=== PATIENT | female | born 1990 | race Caucasian/White ===

== ENCOUNTER 2022-02-19 07:55 | Inpatient (IN) ==
[2022-02-19] MEDS ORDERED: OXYTOCIN 30 UNITS/500 ML BAG IV PRN ×3 (07:59→22:55)
[2022-02-19 08:40] LABS: Hematocrit (blood only) 39.7 % (34.1-44.9); Hemoglobin 13.1 g/dl (12.0-16.0); Mean Corpuscular Hemoglobin 26.6 pg (25.0-34.0); Mean Corpuscular Volume 80.7 fL (80.0-100.0); Mean Platelet Volume 10.7 fL (9.4-12.3); Platelet Count 341 K/uL (130-400); RDW Standard Deviation 45.9 fL (36.4-46.3); Red Blood Count 4.92 M/uL (3.93-5.22); White Blood Count 10.31 K/ul (4.8-10.8)
[2022-02-19 09:07] LABS: Alanine Aminotransferase 14 U/L (7-52); Albumin Level 3.2 gm/dl (3.4-5.0); Alkaline Phosphatase 132 U/L (34-104); Anion Gap 9 (3-11); Aspartate Aminotransferase 18 U/L (13-39); BUN Creatinine Ratio 18.5 (10-20); Bilirubin,Total 0.3 mg/dl (0.2-1.0); Blood Urea Nitrogen 10 mg/dl (6-23); Carbon Dioxide 21 mmol/L (21-32); Chloride 104 mmol/L (98-107); Est GFR (African American) 145.7 ml/min; Est GFR (Non-African American) 125.7 ml/min; Globulin 3.1 gm/dl (2.5-4.0); Glucose 93 mg/dl (70-99(Fasting)); Potassium 3.9 mmol/L (3.5-5.1); Sodium 134 mmol/L (136-145); Total Protein 6.3 gm/dl (6.0-8.3)
[2022-02-19] MEDS: LACTATED RINGER'S 1,000 ML IV PRN ×3 (09:20→19:33)
[2022-02-19] MEDS: CALCIUM CARBONATE 500 MG CHEWABLE TAB PO PRN ×2 (09:34→14:03)
--- NOTE | 2022-02-19 11:56 | Electrocardiogram Report ---
Test Reason : Blood Pressure : / mmHG Vent. Rate : 075 BPM Atrial Rate : 075 BPM P-R Int : 150 ms QRS Dur : 084 ms QT Int : 380 ms P-R-T Axes : 029 006 017 degrees QTc Int : 424 ms Normal sinus rhythm with sinus arrhythmia Moderate voltage criteria for LVH, may be normal variant Borderline ECG No previous ECGs available Confirmed by Matt Flor ([id number]) on 02/19/2022 11:55:47 AM Referred By: Castillo Cruz Confirmed By:Darnell Flor
[2022-02-19] MEDS ORDERED: ePHEDrine sulfate 50 MG/ML AMP ONE (12:22)
[2022-02-19] MEDS ORDERED: fentaNYL citrate 100 MCG/2 ML VIAL ONE ×2 (12:23→20:42)
[2022-02-19] MEDS ORDERED: BUPIVACAINE 0.25% 30 ML VIAL ONE ×2 (12:23→20:42)
[2022-02-19] MEDS ORDERED: fentaNYL 2MCG/ML ROPIVACAINE 1.25MG/ML 100 ML BAG EPI ONE (12:23)
[2022-02-19] MEDS ORDERED: SODIUM CHLORIDE 0.9% INJ 10 ML VIAL ONE (12:23)
[2022-02-19] MEDS ORDERED: LIDOCAINE 2%/EPINEPHRINE 1:200,000 20 ML SDV ONE (12:23)
--- NOTE | 2022-02-19 12:28 | Anesthesiology Consultation ---
Date of Service February 19, 2022 Assessment & Plan (1) Encounter for pre-operative examination: Chart Review Chart Review: Acceptable Risk for Labor Epidural History Height/Weight Height: 5 ft 6 in Weight: 143.088 kg Allergies Allergy/AdvReac Type Severity Reaction Status Date / Time bee venom protein (honey bee) Allergy Swelling Verified 02/18/22 10:28 of the Eye Medications Home Medications Medication Instructions Recorded Confirmed Last Taken aspirin 81 mg tablet,delayed 81 mg PO DAILY 09/18/21 02/19/22 02/17/22 07:00 release prenat.vits,nena,cyz-miub-tyqwo 1 tab PO DAILY #90 tabs 10/19/21 02/19/22 02/19/22 06:00 labetalol 100 mg tablet 100 mg PO BID #60 tabs 12/25/21 02/19/22 02/19/22 0600 famotidine 40 mg tablet 40 mg PO HS #30 tabs 01/18/22 02/19/22 02/18/22 20:00 breast pump #1 ea 02/12/22 02/18/22 Unknown breast pump #1 ea 02/18/22 Unknown Active Medications Generic Name Dose Route Start Last Admin Trade Name Freq PRN Reason Stop Dose Admin Calcium Carbonate 500 mg 02/19/22 09:19 02/19/22 09:34 Calcium Carbonate 500 Mg Chewable Tab PO 03/21/22 09:18 500 mg Q4 PRN Administration Indigestion Oxytocin 30 units in 500 mls @ 10 mls/hr 02/19/22 07:59 02/19/22 12:00 Pitocin IV 02/21/22 07:58 0.6 units/hr .Q24H PRN 10 mls/hr Labor Induction/Augmentation Titration Protocol 0.6 UNITS/HR Lactated Ringer's 1,000 mls @ 125 mls/hr 02/19/22 07:59 02/19/22 10:39 Lr IV 02/21/22 07:58 125 mls/hr .Q8H PRN Infusion L&D Protocol Protocol Past Medical History Medical History Anxiety Benign essential hypertension Chicken pox Obesity Pre-eclampsia delivery without spontaneous labor Exercise / Class Metabolic Activity II 4-5 Yardwork/Stairs/Walk up hill Past Family History Family History Grandmother (Maternal) Breast cancer Mother Cancer Unsure of type Father Lung cancer, Onset Age: 71 smoker Myocardial infarction, Onset Age: 40 heavy smoker Heart disease High cholesterol Coronary heart disease Uncle Myocardial infarction, Onset Age: 50 Coronary heart disease Grandmother (Maternal) Breast cancer, Onset Age: 79 of it at age 80 Denies family history of Rheumatoid arthritis Ovarian cancer Prostate cancer Diabetes Dementia Depression Kidney disease Colorectal cancer Pulmonary embolism Hypertension Ulcerative colitis Stroke Past Surgical History Surgical History [place] teeth extracted Social History Smoking Status: Never smoker Hx Alcohol Use: No Alcohol type: wine and hard liquor Hx Substance Use: No Physical Exam Vital Signs Last Vital Signs Temp 36.8 C 02/19/22 09:39 Pulse 71 02/19/22 12:03 Resp 22 02/19/22 09:39 BP 179/87 H 02/19/22 12:03 Pulse Ox 97 02/19/22 10:54 Testing Laboratory Results 02/19/22 08:16 02/19/22 08:16 Blood Type A Positive 02/19/22 08:16 Antibody Screen NEGATIVE 02/19/22 08:16
[2022-02-19] MEDS ORDERED: fentaNYL 2MCG/ML ROPIVACAINE 1.25MG/ML 100 ML BAG EPI PRN (12:58)
[2022-02-19] MEDS ORDERED: NALOXONE HCL 1 MG in SODIUM CHLORIDE 0.9% 1000ML 1,000 ML IV PRN (12:58)
[2022-02-19] MEDS ORDERED: ePHEDrine sulfate 50 MG/ML AMP IV PRN (12:58)
[2022-02-19] MEDS ORDERED: ONDANSETRON INJ 2 MG/ML 2 ML VIAL IV PRN (12:58)
[2022-02-19] MEDS ORDERED: NALOXONE HCL 0.4 MG/1 ML VIAL/CARP IV PRN (12:58)
[2022-02-19 13:56] LABS: Basophils # (auto) 0.04 K/uL (0-0.2); Basophils % (auto) 0.4 %; Eosinophils # (auto) 0.11 K/uL (0-0.50); Eosinophils % (auto) 1.1 %; Hematocrit (blood only) 39.4 % (34.1-44.9); Hemoglobin 13.1 g/dl (12.0-16.0); Immature Granulocytes # (auto) 0.05 K/uL (0.00-0.02); Immature Granulocytes % (auto) 0.5 %; Lymphocytes # (auto) 2.06 K/uL (1.2-3.4); Lymphocytes % (auto) 20.8 %; Mean Corpuscular Hemoglobin 27.2 pg (25.0-34.0); Mean Corpuscular Hgb Conc 33.2 g/dL (32.0-36.0); Mean Corpuscular Volume 81.7 fL (80.0-100.0); Mean Platelet Volume 10.9 fL (9.4-12.3); Monocytes # (auto) 0.64 K/uL (0.24-0.82); Monocytes % (auto) 6.5 %; Neutrophils # (auto) 7.02 K/uL (1.4-6.5); Neutrophils % (auto) 70.7 %; Platelet Count 323 K/uL (130-400); RDW Coefficient of Variation 16.1 % (11.5-14.5); RDW Standard Deviation 47.6 fL (36.4-46.3); Red Blood Count 4.82 M/uL (3.93-5.22); White Blood Count 9.92 K/ul (4.8-10.8)
[2022-02-19 14:38] LABS: Creatinine Clr Calc Pharmacy 202.4 ml/min; Est GFR (African American) 141.6 ml/min; Est GFR (Non-African American) 122.1 ml/min
--- NOTE | 2022-02-19 14:39 | Hospitalist Consultation ---
Date of Consultation February 19, 2022 Assessment & Plan (1) Chest pain: - Ddx includes GERD vs anxiety vs less likely ACS or PE. Her hypertension has been well controlled this , other RF for cardiac disease include her obesity. She has been slightly tachycardic here which can be attributed to anxiety she endorses. SpO2 > 95% on RA, no personal or family history of VTE. Her history of reflux which she notes has been worse this as well as associated feelings of reflux/regurgitation alleviated sitting more upright and with TUMS makes this more likely to be her reflux, perhaps with anxiety playing a role as well as she tells me she did nto sleep well last night and is nervous about this delivery. - EKG ordered by primary team which shows NSR with sinus arrhythmia and moderate criteria for LVH. - Will order troponin STAT. With intermittent chest pain for 5 hours now, would expect this to be elevated if this is cardiac in nature. If elevated, will pursue cardiac workup. If negative, will continue to monitor but augustine be more reassured that this is her GERD +/- anxiety. - TUMS ordered Q4h PRN, will order Pepcid dose now. Supervising Physician Co-Signing Physician Notes Attending Attestation & Consult Note - Pt seen/examined, chart reviewed, care plan d/w ADRIANE Yusuf. I agree w/ the garcia components of her consultation. 31yo female - - currently in labor and expecting a healthy son. h/o morbid obesity and HTN - latter treated with meds x 3-4 years. also with h/o GERD with frequent symptoms throughout her . reports she also snores during sleep. We were consulted due to mid-sternal chest discomfort, occurring off/on, since admission earlier today. Symptoms feel similar to pain experienced with GERD throughout her . No pleuritic chest pain. No dyspnea. I saw the patient several hours after she received pepcid and her symptoms did improve with such. She admits to feeling anxious about the delivery and is overall uncomfortable due to ongoing contractions. PMH/PSH/allergies/meds/sochx/famhx - reviewed --no personal or family h/o VTE vitals - BPs elevated, HRs 90s/100s, afebrile, o2 sats wnl gen - morbidly obese, awake, alert, NAD neck - no JVD mouth - MMM heart - RRR, s1 s2, no murmur chest - no reproducible chest wall tenderness to palpation lungs - CTA b/l abd - gravid abdomen ext - 1-2+ edema b/l, pulses 2+ b/l labs reviewed including troponin at 1530 this afternoon EKG - my reading - NSR, LVH by voltage criteria, no ST changes A/P: 1. active labor, 2. chest pain - GERD? musculoskeletal? combination of factors? CAD risk factors - family history, morbid obesity plan to repeat 1 more troponin later tonight and, if normal, ischemic pain highly unlikely 3. LVH on EKG - likely due to long-standing HTN; deserves echo at some point in future to assess LV 4. snoring - needs sleep study in the future as this will make HTN more difficult to treat 5. GERD - change H2 antonio to PPI in am as it appears her GERD is moderate- severe; she intends to breastfeed but PPI is acceptable based on the literature 6. HTN - will follow and adjust labetalol if needed Candelario Artis MD History of Present Illness Reason for Consultation: chest pain Requesting Physician: Castillo Cruz MD, FACOG Attending Physician: Castillo Cruz MD, FACOG History of Present Illness Jes Hwang is a 31-year-old female with a past medical history significant of hypertension, GERD, anxiety, and preeclampsia was admitted today, 02/19 for induction today. Patient arrived around 8 AM today, and reports about 2 hours after arrival, she began to experience left-sided chest discomfort. Hospitalist service was consulted for further evaluation. Patient states she first noted her chest discomfort occurred at rest and does not feel necessarily sharp, stabbing, or like a burning sensation. She feels as if sometimes her heart is beating funny with the discomfort. It is a 5/10 at its worse and lasts for 2 minutes before it goes away on its own. Does not radiate. She has noticed that deep breaths is an alleviating factor, as well as sitting upright. She was given Tums earlier which helped a bit. Nothing makes the pain particularly worse. She does not feel short of breath, dizzy, or lightheaded with the chest pain but does have the sensation as if she could regurgitate something. She does note her reflux has been worse this , she has been taking both vbln-pew-ivusonx and prescribed Pepcid for this, last taken last evening. Does have stress going on in her life and is feeling somewhat anxious about giving . No personal history of cardiac disease or pulmonary disease, she denies ever having any blood clot. Allergies Allergy/AdvReac Type Severity Reaction Status Date / Time bee venom protein (honey bee) Allergy Swelling Verified 02/18/22 10:28 of the Eye Home Medications Medication Instructions Recorded Confirmed Type aspirin 81 mg tablet,delayed 81 mg PO DAILY 09/18/21 02/19/22 History release prenat.vits,nena,vsw-qqnm-gmutk 1 tab PO DAILY #90 tabs 10/19/21 02/19/22 Rx labetalol 100 mg tablet 100 mg PO BID #60 tabs 12/25/21 02/19/22 Rx famotidine 40 mg tablet 40 mg PO HS #30 tabs 01/18/22 02/19/22 Rx breast pump #1 ea 02/12/22 02/18/22 Rx breast pump #1 ea 02/18/22 Rx Patient History Medical History Anxiety Benign essential hypertension Chicken pox Obesity Pre-eclampsia delivery without spontaneous labor Surgical History [place] teeth extracted Family History Grandmother (Maternal) Breast cancer Mother Cancer Unsure of type Father Lung cancer, Onset Age: 71 smoker Myocardial infarction, Onset Age: 40 heavy smoker Heart disease High cholesterol Coronary heart disease Uncle Myocardial infarction, Onset Age: 50 Coronary heart disease Grandmother (Maternal) Breast cancer, Onset Age: 79 of it at age 80 Denies family history of Rheumatoid arthritis Ovarian cancer Prostate cancer Diabetes Dementia Depression Kidney disease Colorectal cancer Pulmonary embolism Hypertension Ulcerative colitis Stroke Social History Smoking Status: Never smoker Second Hand Exposure: No; Hx Alcohol Use: No Hx Substance Use: No Preferred Language: Tanzanian Communication Ability: Effective Label Pinker Required: No Beliefs That Will Affect Care: None marital status: marital status details: Keny Jaiden ([id number]) [phone] Current Living Situation: Family Current Living Situation Comment: FOB, son and custody of mary (9yo). 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 Feels Safe at Home: Yes Safety Concerns: Feels Safe At This Time Childhood Exposure to Second-Hand Smoke: Yes caffeine: No Dental Care, Regularly: No Seatbelt Use: always Sunscreen Use: Yes Assistive Devices: None Review of Systems Review of Systems: Constitutional: No fever/chills, weakness, fatigue, myalgias, anorexia, night sweats Eyes: No diplopia, no worsening or blurred vision ENT: normal hearing, no trouble swallowing Respiratory: No cough, sputum, dyspnea at rest or on exertion Cardiovascular: left sided chest discomfort lasting 2 mins at a time since this AM, with sensation that her heart is beating "funny" Abdomen: reflux associated with chest discomfort at times; no pain, nausea, vomiting, diarrhea or constipation : Denies dysuria, hematuria, increased urgency/frequency, urinary retention Musculoskeletal: No joint pain, calf pain, swelling Neurologic: No weakness, numbness/tingling, or balance problems Psychiatric: No anxiety or depression Skin: No rash or itch Physical Exam Physical Exam: General: awake, alert, no apparent distress Head: Normocephalic, atraumatic ENT: PERRL, EOMI, no pharyngeal exudate, mucous membranes moist Chest: Clear to auscultation, on room air, no adventitious breath sounds Cardiac: Regular rate and rhythm, no murmur, no JVD, normal peripheral pulses, good capillary refill Abdominal: NABS x 4 quadrants, soft, nontender to palpation, no rebound, guarding or tenderness Extremities: Normal inspection, no peripheral edema or erythema, calfs nontender to palpation Psych: Normal mood and affect Neuro: AAO x 3, strength intact bilaterally and rated 5/5, no motor deficits, speech is clear, no peripheral sensory deficits Skin: no rash or erythema Results & Data Results & Data ([facility]) Vital Signs (Past 12 Hours) Vital Signs Temp Pulse Resp BP Pulse Ox 02/19/22 14:32 94 H 95 02/19/22 14:27 72 98 02/19/22 14:28 80 149/86 H 02/19/22 14:22 80 98 02/19/22 14:18 88 137/86 02/19/22 14:17 77 95 02/19/22 14:12 74 98 02/19/22 14:10 89 164/83 H 02/19/22 14:07 86 99 02/19/22 14:02 84 98 02/19/22 13:59 36.8 C 80 20 136/79 02/19/22 13:57 70 97 02/19/22 13:52 67 97 02/19/22 13:50 80 93 02/19/22 13:49 78 145/67 H 02/19/22 13:47 86 97 02/19/22 13:42 82 97 02/19/22 13:38 96 H 164/83 H 02/19/22 13:37 92 H 99 02/19/22 13:32 83 99 02/19/22 13:27 99 02/19/22 13:27 84 02/19/22 13:28 80 147/71 H 02/19/22 13:27 91 H 91 02/19/22 13:22 76 97 02/19/22 13:18 78 167/95 H 02/19/22 13:17 82 98 02/19/22 13:12 84 99 02/19/22 13:09 90 146/102 H 02/19/22 13:07 78 98 02/19/22 13:06 83 180/101 H 02/19/22 13:02 93 H 96 02/19/22 13:01 91 H 171/84 H 02/19/22 12:59 84 168/90 H 02/19/22 12:57 70 164/83 H 97 02/19/22 12:56 82 180/88 H 02/19/22 12:52 80 98 02/19/22 12:47 77 98 02/19/22 12:45 114 H 94 02/19/22 12:42 93 H 97 02/19/22 12:38 91 H 93 02/19/22 12:37 90 97 02/19/22 12:32 84 97 02/19/22 12:03 71 179/87 H 02/19/22 11:57 77 177/90 H 02/19/22 11:40 78 181/101 H 02/19/22 10:54 74 97 02/19/22 10:49 74 96 02/19/22 10:44 83 97 02/19/22 10:39 83 97 02/19/22 10:35 75 142/71 H 02/19/22 10:34 78 97 02/19/22 10:29 80 97 02/19/22 10:27 80 142/69 H 02/19/22 10:26 81 94 02/19/22 10:24 72 96 02/19/22 10:19 78 97 02/19/22 10:17 89 131/96 02/19/22 10:14 85 97 02/19/22 10:09 80 97 02/19/22 10:05 81 138/79 02/19/22 10:04 91 H 95 02/19/22 09:59 84 96 02/19/22 09:55 84 132/78 02/19/22 09:54 84 97 02/19/22 09:49 95 H 96 02/19/22 09:46 81 138/80 02/19/22 09:44 86 97 02/19/22 09:39 85 97 02/19/22 09:36 82 149/81 H 02/19/22 09:34 90 97 02/19/22 09:29 91 H 98 02/19/22 09:25 94 H 153/79 H 02/19/22 09:24 89 98 02/19/22 09:19 102 H 97 02/19/22 09:14 83 99 02/19/22 09:15 77 148/87 H 02/19/22 09:09 90 97 02/19/22 09:05 85 156/94 H 02/19/22 09:04 89 97 02/19/22 08:59 92 H 99 02/19/22 08:54 92 H 98 02/19/22 08:50 82 138/90 02/19/22 09:39 36.8 C 82 22 149/81 H 96 Laboratory Results Abnormal lab results 02/19/22 02/19/22 02/19/22 Range/Units 08:16 08:16 13:43 RDW Std Deviation 47.6 H (36.4-46.3) fL RDW Coeff of Jailene 16.0 H 16.1 H (11.5-14.5) % Neut # (Auto) 7.02 H (1.4-6.5) K/uL Immature Gran # (Auto) 0.05 H (0.00-0.02) K/uL Sodium 134 L (136-145) mmol/L Creatinine 0.54 L (0.6-1.2) mg/dl Alkaline Phosphatase 132 H (34-104) U/L Albumin 3.2 L (3.4-5.0) gm/dl ECG Additional Comments: Normal sinus rhythm with sinus arrhythmia Moderate voltage criteria for LVH, may be normal variant Borderline ECG No previous ECGs available Confirmed by Matt Flor ([id number]) on 02/19/2022 11:55:47 AM PG Care Time/CCT Total # of Minutes Spent Total Time Spent with Patient: Total time spent is greater than 50% in coordination of care (as documented) at patient's floor/unit and/or counseling patient: Coding Level of Care Code 74032 Inpt Consult Level 3 Diagnoses Chest pain R07.9
[2022-02-19] MEDS ORDERED: FAMOTIDINE 40 MG TABLET PO ONE (16:00)
--- NOTE | 2022-02-19 19:05 | Labor Progress Brief Note ---
Date of Service February 19, 2022 Still 4 cm membranes were ruptured IUPC is placed after discussion with patient to better gain idea of the strength of her contractions Pitocin is at 18 Assessment & Plan Admission and Anticipated Discharge Date Admission Date: February 19, 2022 Results & Data ([facility]) Vital Signs (Past 12 Hours) Vital Signs Temp Pulse Resp BP Pulse Ox 02/19/22 19:02 92 H 96 02/19/22 18:57 97 H 95 02/19/22 18:52 111 H 94 02/19/22 18:47 98 H 96 02/19/22 18:45 105 H 171/74 H 02/19/22 18:42 101 H 96 02/19/22 18:37 88 95 02/19/22 18:32 99 H 97 02/19/22 18:30 100 H 130/56 L 02/19/22 18:27 115 H 96 02/19/22 18:28 109 H 89 L 02/19/22 18:22 105 H 96 02/19/22 18:17 96 H 96 02/19/22 18:14 104 H 143/69 H 02/19/22 18:12 98 H 96 02/19/22 18:07 103 H 97 02/19/22 18:02 101 H 97 02/19/22 18:00 96 H 143/73 H 02/19/22 17:57 98 H 95 02/19/22 17:52 96 H 95 02/19/22 17:47 91 H 96 02/19/22 17:44 95 H 141/80 H 02/19/22 17:42 106 H 97 02/19/22 17:37 95 H 95 02/19/22 17:32 92 H 97 02/19/22 17:30 91 H 142/70 H 02/19/22 17:27 96 H 95 02/19/22 17:22 92 H 97 02/19/22 17:17 93 H 96 02/19/22 17:15 93 H 162/76 H 02/19/22 17:12 83 96 02/19/22 17:07 105 H 94 02/19/22 17:02 95 02/19/22 17:02 103 H 02/19/22 17:02 100 H 94 02/19/22 16:59 98.6 F 90 18 136/81 02/19/22 16:57 103 H 96 02/19/22 16:52 100 H 96 02/19/22 16:47 79 96 02/19/22 16:45 88 94 02/19/22 16:42 92 H 98 02/19/22 16:37 81 98 02/19/22 16:32 98 H 97 02/19/22 16:30 91 H 140/80 02/19/22 16:27 89 98 02/19/22 16:22 95 H 96 02/19/22 16:17 100 H 97 02/19/22 16:14 89 145/85 H 02/19/22 16:12 89 97 02/19/22 16:07 104 H 99 02/19/22 16:02 96 H 98 02/19/22 15:58 80 131/71 02/19/22 15:57 81 97 02/19/22 15:52 88 97 02/19/22 15:47 88 98 02/19/22 15:44 90 134/70 02/19/22 15:42 91 H 98 02/19/22 15:37 89 98 02/19/22 15:32 84 98 02/19/22 15:28 86 141/76 H 02/19/22 15:27 88 98 02/19/22 15:22 82 99 02/19/22 15:17 82 96 02/19/22 15:18 88 136/73 02/19/22 15:12 77 97 02/19/22 15:09 79 134/71 02/19/22 15:07 85 96 02/19/22 15:02 70 95 02/19/22 14:58 83 135/70 02/19/22 14:57 83 97 02/19/22 14:52 77 98 02/19/22 14:49 79 132/75 02/19/22 14:47 89 98 02/19/22 14:46 91 H 93 02/19/22 14:42 75 98 02/19/22 14:37 81 97 02/19/22 14:38 79 139/76 02/19/22 14:32 94 H 95 02/19/22 14:27 72 98 02/19/22 14:28 80 149/86 H 02/19/22 14:22 80 98 02/19/22 14:18 88 137/86 02/19/22 14:17 77 95 02/19/22 14:12 74 98 02/19/22 14:10 89 164/83 H 02/19/22 14:07 86 99 02/19/22 14:02 84 98 02/19/22 13:59 98.2 F 80 20 136/79 02/19/22 13:57 70 97 02/19/22 13:52 67 97 02/19/22 13:50 80 93 02/19/22 13:49 78 145/67 H 02/19/22 13:47 86 97 02/19/22 13:42 82 97 02/19/22 13:38 96 H 164/83 H 02/19/22 13:37 92 H 99 02/19/22 13:32 83 99 02/19/22 13:27 99 02/19/22 13:27 84 02/19/22 13:28 80 147/71 H 02/19/22 13:27 91 H 91 02/19/22 13:22 76 97 02/19/22 13:18 78 167/95 H 02/19/22 13:17 82 98 02/19/22 13:12 84 99 02/19/22 13:09 90 146/102 H 02/19/22 13:07 78 98 02/19/22 13:06 83 180/101 H 02/19/22 13:02 93 H 96 02/19/22 13:01 91 H 171/84 H 02/19/22 12:59 84 168/90 H 02/19/22 12:57 70 164/83 H 97 02/19/22 12:56 82 180/88 H 02/19/22 12:52 80 98 02/19/22 12:47 77 98 02/19/22 12:45 114 H 94 02/19/22 12:42 93 H 97 02/19/22 12:38 91 H 93 02/19/22 12:37 90 97 02/19/22 12:32 84 97 02/19/22 12:03 71 179/87 H 02/19/22 11:57 77 177/90 H 02/19/22 11:40 78 181/101 H 02/19/22 10:54 74 97 02/19/22 10:49 74 96 02/19/22 10:44 83 97 02/19/22 10:39 83 97 02/19/22 10:35 75 142/71 H 02/19/22 10:34 78 97 02/19/22 10:29 80 97 02/19/22 10:27 80 142/69 H 02/19/22 10:26 81 94 02/19/22 10:24 72 96 02/19/22 10:19 78 97 02/19/22 10:17 89 131/96 02/19/22 10:14 85 97 02/19/22 10:09 80 97 02/19/22 10:05 81 138/79 02/19/22 10:04 91 H 95 02/19/22 09:59 84 96 02/19/22 09:55 84 132/78 02/19/22 09:54 84 97 02/19/22 09:49 95 H 96 02/19/22 09:46 81 138/80 02/19/22 09:44 86 97 02/19/22 09:39 85 97 02/19/22 09:36 82 149/81 H 02/19/22 09:34 90 97 02/19/22 09:29 91 H 98 02/19/22 09:25 94 H 153/79 H 02/19/22 09:24 89 98 02/19/22 09:19 102 H 97 02/19/22 09:14 83 99 02/19/22 09:15 77 148/87 H 02/19/22 09:09 90 97 02/19/22 09:05 85 156/94 H 02/19/22 09:04 89 97 02/19/22 08:59 92 H 99 02/19/22 08:54 92 H 98 02/19/22 08:50 82 138/90 02/19/22 09:39 98.2 F 82 22 149/81 H 96 Coding Level of Care Code None
[2022-02-19] MEDS ORDERED: NURSING L&D Epidural Breakthrough Pain Update ONE (20:24)
--- NOTE | 2022-02-19 22:29 | Delivery Summary ---
Vaginal Delivery Summary Date of Service February 19, 2022 Vaginal Delivery Summary Patient induced for chronic hypertension initially with cervical Mcneill then Pitocin she did suffers from some chest pain which was assessed with an EKG and by the hospitalist team most this was felt to be more due to anxiety she also had some elevated blood pressures related to anxiety however this would settle down soon afterwards. Labs were drawn to check for preeclampsia and these were negative Patient progressed to anterior lip was feeling discomfort and started to push this she then delivered a baby in occiput anterior position this was accomplished by delivering the head suctioning mouth and nares then gentle traction the baby no excessive force live vigorous male cord clamped and cut cord blood obtained placenta removed with traction there was no tearing estimated blood loss 150 mL IV the Pitocin was started uterine tone improved sponge and instrument counts correct
[2022-02-19] MEDS ORDERED: oxyCODONE/ACETAMINOPHEN 5mg/325mg TAB PO PRN (22:55)
[2022-02-19] MEDS ORDERED: HYDROCORTISONE ACETATE 25 MG SUPP PR PRN (22:55)
[2022-02-19] MEDS ORDERED: BENZOCAINE 20% AER SPR 82.5 GM CAN EXT PRN (22:55)
[2022-02-19] MEDS ORDERED: DIPHTHERIA/TETANUS/PERTUSSIS 0.5 ML SYR/VIAL IM ONE (22:55)
[2022-02-19] MEDS ORDERED: bisacodyL 10 MG SUPP PR PRN (22:55)
[2022-02-19] MEDS ORDERED: ACETAMINOPHEN 325 MG TAB PO PRN (22:55)
[2022-02-19] MEDS: IBUPROFEN 600 MG TAB PO PRN (23:33)
[2022-02-20] MEDS: LABETALOL HCL 100 MG TAB PO SCH ×3 (00:05→20:18)
[2022-02-20 06:02] LABS: Hematocrit (blood only) 36.1 % (34.1-44.9); Hemoglobin 11.8 g/dl (12.0-16.0); Mean Corpuscular Hemoglobin 26.9 pg (25.0-34.0); Mean Corpuscular Hgb Conc 32.7 g/dL (32.0-36.0); Mean Corpuscular Volume 82.2 fL (80.0-100.0); Mean Platelet Volume 10.5 fL (9.4-12.3); Platelet Count 286 K/uL (130-400); RDW Coefficient of Variation 15.6 % (11.5-14.5); RDW Standard Deviation 46.3 fL (36.4-46.3); Red Blood Count 4.39 M/uL (3.93-5.22); White Blood Count 15.13 K/ul (4.8-10.8)
--- NOTE | 2022-02-20 06:24 | Anesthesia Procedure Note ---
Date of Service February 20, 2022 Anesthesia Post Epidural Note Vital Signs Vital Signs: Temp Pulse Resp BP Pulse Ox O2 Del Method 36.5 C 100 H 24 126/84 97 02/20/22 03:45 02/20/22 03:45 02/20/22 03:45 02/20/22 03:45 02/20/22 03:45 02/20/22 03:45 Pain Intensity Bilateral Abdomen: Pain Intensity: 6 Bilateral Perineal: Pain Intensity: 1 Notes Mental Status: alert / awake / arousable and participated in evaluation Nausea / Vomiting: adequately controlled Pain: adequately controlled Airway Patency, RR, SpO2: stable & adequate BP & HR: stable & adequate Hydration State: stable & adequate Neuraxial Anesthesia: was administered and sensory block is resolving Anesthetic Complications: no major complications apparent Epidural: Removed without complications and With tip intact
--- NOTE | 2022-02-20 06:45 | Obstetrical Progress Note ---
Date of Service <Silvia Biju Robertson DO - Last Filed: 02/20/22 06:45> February 20, 2022 Assessment & Plan <Silvia Biju Robertson DO - Last Filed: 02/20/22 06:45> (1) state: Patient is PPD 1 s/p and doing well. - Eating well, voiding well, ambulating well - Vitals reviewed and within normal limits - Pain well controlled with ibuprofen 600 mg Q4H PRN - OOB, ambulation, diet progression as tolerated - Blood type: A+, GBS neg, rubella immune - Plan to discharge tomorrow - After discharge, 6 week follow up with Dr. Cruz <Castillo Cruz MD, FACOG - Last Filed: 02/20/22 07:38> (1) state: Subjective <Silvia KauffmanJoanna Robertson DO - Last Filed: 02/20/22 06:45> Jes Hwang is a 31 yo female who is now PPD #1 following spontaneous vaginal delivery at 38 weeks. Reports feeling well this morning. She denies abdominal cramping. She has 7-8/10 pain that comes and goes that she believes is related to hemorrhoids. Otherwise, she has no pain. Chest pain from yesterday has not recurred. Voiding without issue. Tolerating regular meals overnight and able to ambulate some. She has passed gas but no bowel movements. Persistent lochia with some improvement this morning. Currently breast feeding. Review of Systems Denies fever, chills, sweats. Denies SOB, difficulty breathing, chest pain, palpitations, and chest pressure. Denies breast pain. Denies dysuria. Denies headache or changes in vision. Physical Exam <Silvia Robertson DO - Last Filed: 02/20/22 06:45> General: Alert and oriented. No acute distress. CV: Regular rate and rhythm. No murmurs. Respiratory: CTA bilaterally. No rhonchi, wheezes, or crackles. No increased work of breathing. Abdomen: Positive bowel sounds. Soft, nontender, non distended. Uterus: Fundus firm and palpable 3 cm below the umbilicus. Lower extremities: Bilateral lower extremity edema mainly in feet. No deep calf pain. Michael's negative bilaterally. Results & Data ([facility]) <Silvia Ivy Marcelo, DO - Last Filed: 02/20/22 06:45> Vital Signs (Past 12 Hours) Vital Signs Temp Pulse Pulse Resp BP BP Pulse Ox 02/20/22 03:45 36.5 C 100 H 24 126/84 97 02/20/22 01:00 36.7 C 115 H 22 138/84 95 02/20/22 00:35 75 137/77 02/20/22 00:05 18 02/19/22 22:50 18 02/19/22 23:35 18 02/19/22 23:20 18 02/19/22 23:20 18 02/19/22 23:05 18 02/19/22 22:35 18 02/20/22 00:34 75 137/77 02/20/22 00:20 100 H 162/90 H 02/20/22 00:04 117 H 145/82 H 02/19/22 23:49 106 H 146/82 H 02/19/22 23:34 114 H 149/88 H 02/19/22 23:19 91 H 147/81 H 02/19/22 23:04 86 147/82 H 02/19/22 22:54 96 H 142/86 H 02/19/22 22:00 18 02/19/22 22:00 18 02/19/22 21:30 18 02/19/22 21:30 18 02/19/22 22:37 101 H 96 02/19/22 22:35 100 H 191/86 H 02/19/22 22:32 104 H 98 02/19/22 22:27 107 H 97 02/19/22 22:22 112 H 95 02/19/22 22:17 99 H 95 02/19/22 22:13 110 H 89 L 02/19/22 22:12 94 H 98 02/19/22 22:07 87 98 02/19/22 22:02 96 H 99 02/19/22 21:57 101 H 97 02/19/22 21:52 106 H 96 02/19/22 21:50 108 H 167/109 H 02/19/22 21:47 99 H 96 02/19/22 21:42 83 96 02/19/22 21:37 80 97 02/19/22 21:36 85 175/94 H 02/19/22 21:32 71 95 02/19/22 21:27 87 96 02/19/22 21:00 18 02/19/22 21:00 36.8 C 18 02/19/22 21:22 87 96 02/19/22 21:21 95 H 143/92 H 02/19/22 21:17 74 98 02/19/22 21:12 93 H 97 02/19/22 21:07 101 H 96 02/19/22 21:04 103 H 160/77 H 02/19/22 21:02 98 H 97 02/19/22 21:01 99 H 174/72 H 02/19/22 20:58 93 H 171/74 H 02/19/22 20:57 98 H 97 02/19/22 20:55 90 186/77 H 02/19/22 20:52 93 H 96 02/19/22 20:50 90 164/96 H 02/19/22 20:47 81 97 02/19/22 20:42 88 94 02/19/22 20:37 103 H 98 02/19/22 20:32 86 97 02/19/22 20:30 103 H 20 173/96 H 02/19/22 20:27 89 97 02/19/22 20:22 76 97 02/19/22 20:17 81 97 02/19/22 20:15 88 148/91 H 02/19/22 20:12 94 H 97 02/19/22 20:00 18 02/19/22 20:00 18 02/19/22 20:07 96 H 97 02/19/22 20:02 106 H 97 02/19/22 19:57 105 H 97 02/19/22 19:52 117 H 98 02/19/22 19:47 102 H 95 02/19/22 19:44 97 H 187/88 H 02/19/22 19:42 102 H 96 02/19/22 19:37 85 98 02/19/22 19:32 106 H 98 02/19/22 19:31 99 H 166/87 H 02/19/22 19:30 18 02/19/22 19:30 18 02/19/22 19:27 102 H 97 02/19/22 19:22 95 H 97 02/19/22 19:17 101 H 98 02/19/22 19:14 86 173/93 H 02/19/22 18:59 18 02/19/22 18:59 36.4 C L 18 02/19/22 19:12 76 97 02/19/22 19:07 78 97 02/19/22 19:02 92 H 96 02/19/22 18:57 97 H 95 02/19/22 18:52 111 H 94 02/19/22 18:47 98 H 96 02/19/22 18:45 105 H 171/74 H 02/19/22 18:42 101 H 96 O2 Del Method 02/20/22 03:45 Room Air 02/20/22 01:00 Room Air 02/20/22 00:35 02/20/22 00:05 02/19/22 22:50 02/19/22 23:35 02/19/22 23:20 02/19/22 23:20 02/19/22 23:05 02/19/22 22:35 02/20/22 00:34 02/20/22 00:20 02/20/22 00:04 02/19/22 23:49 02/19/22 23:34 02/19/22 23:19 02/19/22 23:04 02/19/22 22:54 02/19/22 22:00 02/19/22 22:00 02/19/22 21:30 02/19/22 21:30 02/19/22 22:37 02/19/22 22:35 02/19/22 22:32 02/19/22 22:27 02/19/22 22:22 02/19/22 22:17 02/19/22 22:13 02/19/22 22:12 02/19/22 22:07 02/19/22 22:02 02/19/22 21:57 02/19/22 21:52 02/19/22 21:50 02/19/22 21:47 02/19/22 21:42 02/19/22 21:37 02/19/22 21:36 02/19/22 21:32 02/19/22 21:27 02/19/22 21:00 02/19/22 21:00 02/19/22 21:22 02/19/22 21:21 02/19/22 21:17 02/19/22 21:12 02/19/22 21:07 02/19/22 21:04 02/19/22 21:02 02/19/22 21:01 02/19/22 20:58 02/19/22 20:57 02/19/22 20:55 02/19/22 20:52 02/19/22 20:50 02/19/22 20:47 02/19/22 20:42 02/19/22 20:37 02/19/22 20:32 02/19/22 20:30 02/19/22 20:27 02/19/22 20:22 02/19/22 20:17 02/19/22 20:15 02/19/22 20:12 02/19/22 20:00 02/19/22 20:00 02/19/22 20:07 02/19/22 20:02 02/19/22 19:57 02/19/22 19:52 02/19/22 19:47 02/19/22 19:44 02/19/22 19:42 02/19/22 19:37 02/19/22 19:32 02/19/22 19:31 02/19/22 19:30 02/19/22 19:30 02/19/22 19:27 02/19/22 19:22 02/19/22 19:17 02/19/22 19:14 02/19/22 18:59 02/19/22 18:59 02/19/22 19:12 02/19/22 19:07 02/19/22 19:02 02/19/22 18:57 02/19/22 18:52 02/19/22 18:47 02/19/22 18:45 02/19/22 18:42 <Castillo Cruz MD, FACOG - Last Filed: 02/20/22 07:38> Co-Signing Physician Notes Resident Physician Supervision Note: I was present with [Name of resident] during the history and exam. I discussed the case with the resident and agree with the findings and plan as documented in the note. Any exceptions or clarifications are listed here: [None] Documented By: Castillo Cruz MD, FACOG Resident Activity Tracking <Silvia Robertson DO - Last Filed: 02/20/22 06:45> Resident Involvement: Resident Care Provided Care Provided: OB Delivery
[2022-02-20] MEDS: PRENATAL VITAMIN 1 TAB PO SCH (08:20)
[2022-02-20] MEDS: IBUPROFEN 600 MG TAB PO PRN ×2 (08:20→15:09)
[2022-02-20] MEDS: DOCUSATE SODIUM 100 MG CAP PO SCH ×2 (08:20→20:18)
[2022-02-20] MEDS ORDERED: PANTOprazole 40 MG TAB PO SCH (09:00)
[2022-02-20] MEDS: FAMOTIDINE 20 MG TAB PO SCH ×2 (11:52→20:18)
[2022-02-20] MEDS ORDERED: bisacodyL 5 MG TABEC PO SCH (20:00)
--- NOTE | 2022-02-20 20:49 | Hospitalist Progress Note ---
Date of Service February 20, 2022 Assessment & Plan (1) Chest pain: Plan: Suspect was 2nd to GERD. Can't exclude anxiety. Troponins neg x 2, and EKG yesterday without ischemic changes (LVH by voltage criteria seen, however). Pain resolved. Cont H2 antonio for GERD. I did recommend that given the suggestion of LVH on EKG she undergo routine outpatient echo to assess anatomy. (2) Chronic hypertension affecting : Plan: Continue beta antonio - no change in dose today. BPs improved since delivery. She was on metoprolol succinate prior to this . Could switch back to this at discharge. Based on available data metoprolol likely safe duration . Pt's reports significant snoring - should have sleep study in future to r/o SKYLER. See above re: outpt echo. (3) Anxiety: Plan: improved today follow (4) Obesity, morbid: Plan: BMI >50 (5) GERD (gastroesophageal reflux disease): Plan: cont H2 antonio 20mg BID of pepcid could use PPI if symptoms are refractory to H2 antonio (6) LVH (left ventricular hypertrophy): Plan: suggestion of such on EKG given chronic HTN and morbid obesity would advise outpatient echo to assess LV Fx, anatomy, etc Plan will cont to follow Admission and Anticipated Discharge Date Admission Date: February 19, 2022 Subjective patient feeling "much better" today less anxiety only scant amount of reflux symptoms since her delivery last evening denies any dyspnea denies any pleuritic pain reports that prior to becoming he thinks she was on metoprolol for blood pressure control Review of Systems Review of Systems: cv - no orthopnea, no chest pain pulm - no dyspnea GI - minimal reflux symptoms; no abd pain; no nausea Physical Exam Physical Exam: gen - morbidly obese, NAD neck - no JVD mouth - MMM heart - RRR, s1 s2, no murmur lungs - CTA b/l, decreased BS bases abd - soft NT ND ext - <1+ edema b/l; pulses 2+ b/l Results & Data Results & Data ([facility]) Vital Signs (Past 12 Hours) Vital Signs Temp Pulse Resp BP Pulse Ox O2 Del Method 02/20/22 19:01 36.9 C 101 H 16 106/73 95 Room Air 02/20/22 15:15 36.4 C L 95 H 16 137/83 98 Room Air 02/20/22 11:45 36.7 C 87 16 116/78 97 Room Air Laboratory Results Laboratory Results - last 24 hr 02/20/22 05:51 WBC 15.13 H RBC 4.39 Hgb 11.8 L Hct 36.1 MCV 82.2 MCH 26.9 MCHC 32.7 RDW Std Deviation 46.3 RDW Coeff of Jailene 15.6 H Plt Count 286 MPV 10.5 troponins negative x 2 PG Care Time/CCT Total # of Minutes Spent Total Time Spent with Patient: Total time spent is greater than 50% in coordination of care (as documented) at patient's floor/unit and/or counseling patient: Coding Level of Care Code 17232 Subseq Hosp Care Lvl 1 Diagnoses Chest pain R07.9 Chronic hypertension affecting O10.919 Anxiety F41.9 Obesity, morbid E66.01 GERD (gastroesophageal reflux disease) K21.9 LVH (left ventricular hypertrophy) I51.7
--- NOTE | 2022-02-21 05:31 | Obstetrical Progress Note ---
Date of Service <Silvia Robertson DO - Last Filed: 02/21/22 06:10> February 21, 2022 Assessment & Plan <Silvia Robertson DO - Last Filed: 02/21/22 06:10> (1) state: Patient is PPD 2 s/p and doing well. - Eating well, voiding well, ambulating well - Vitals reviewed and some high BPs overnight. Currently on labetalol 100 mg BID - Pain well controlled with ibuprofen 600 mg Q4H PRN - OOB, ambulation, diet progression as tolerated - Blood type: A+, GBS neg, rubella immune - Plan to discharge today - After discharge, 6 week follow up with Dr. Cruz (2) Chronic hypertension affecting : - Vitals reviewed and some high BPs overnight - Currently on labetalol 100 mg BID - Hospitalist service consulted yesterday d/t symptoms of chest pain and ordered two trops that were both neg. No further workup indicated at this time. - Considered chest pain to be caused by GERD and/or anxiety <Rosa Armenta MD - Last Filed: 02/21/22 07:09> (1) state: (2) Chronic hypertension affecting : Subjective <Silvia Robertson DO - Last Filed: 02/21/22 06:10> Jes Hwang is a 31 yo female who is now PPD #2 following spontaneous vaginal delivery at 38 weeks. Reports feeling well this morning. She denies abdominal cramping and 0/10 pain well managed on analgesics. Voiding without issue. Tolerating regular meals overnight and able to ambulate some. She has passed gas but no bowel movements. Persistent lochia with some improvement this morning. She notices small clots on her pads. Currently breast feeding with supplemental bottle feeds. She states her son is doing better with pumping and eating rather than eating straight from the breast. Review of Systems Denies fever, chills, sweats. Denies SOB, difficulty breathing, chest pain, palpitations, and chest pressure. She has not had chest pain since yesterday's episodes. She describes these episodes as more of a discomfort rather than a pain. Denies breast pain. Denies dysuria. Denies headache or changes in vision. Physical Exam <Silvia Robertson DO - Last Filed: 02/21/22 06:10> General: Alert and oriented. No acute distress. CV: Regular rate and rhythm. No murmurs. Respiratory: CTA bilaterally. No rhonchi, wheezes, or crackles. No increased work of breathing. Abdomen: Positive bowel sounds. Soft, nontender, non distended. Uterus: Fundus firm and palpable 2 cm below the umbilicus. Lower extremities: Bilateral feet and ankles are minimally edematous. No deep calf pain. Michael's negative bilaterally. Results & Data ([facility]) <Silvia Robertson DO - Last Filed: 02/21/22 06:10> Vital Signs (Past 12 Hours) Vital Signs Temp Pulse Resp BP Pulse Ox O2 Del Method 02/20/22 23:06 36.5 C 82 16 125/82 94 Room Air 02/20/22 19:01 36.9 C 101 H 16 106/73 95 Room Air <Rosa Armenta MD - Last Filed: 02/21/22 07:09> Co-Signing Physician Notes Resident Physician Supervision Note: I interviewed and examined the patient. Discussed with Dr. Robertson and agree with findings and plan as documented in the note. Any exceptions or clarifications are listed here: PP2 s/p , doing well. No further episodes of chest pain, hospitalist team following, appreciate recs. VSS, exam benign and wnl. Stable from OB standpoint today for d/c, pt made aware of hospitalist recs regarding contact pcp for outpt echo f/u and possible transition back to different BP med. Documented By: Rosa Armenta MD Resident Activity Tracking <Silvia Robertson DO - Last Filed: 02/21/22 06:10> Resident Involvement: Resident Care Provided Care Provided: OB Delivery
[2022-02-21] MEDS: DOCUSATE SODIUM 100 MG CAP PO SCH (08:58)
[2022-02-21] MEDS: PRENATAL VITAMIN 1 TAB PO SCH (08:58)
[2022-02-21] MEDS: LABETALOL HCL 100 MG TAB PO SCH (08:58)
[2022-02-21] MEDS: FAMOTIDINE 20 MG TAB PO SCH (08:58)
== END 2022-02-21 12:04 | disposition home or self-care (01) | DRG 805 ==
LOC: 4S1 07:55 → 4E2 02-20 01:10
DX: Z79.82 Long term (current) use of aspirin; Z82.49 Family history of ischemic heart disease and other diseases of the circulatory system; E66.01 Morbid (severe) obesity due to excess calories; O10.02 Pre-existing essential hypertension complicating childbirth; Z37.0 Single live birth; Z91.030 Bee allergy status; K21.9 Gastro-esophageal reflux disease without esophagitis; F41.9 Anxiety disorder, unspecified; Z3A.38 38 weeks gestation of pregnancy; R06.83 Snoring; O14.94 Unspecified pre-eclampsia, complicating childbirth; O99.214 Obesity complicating childbirth; O99.42 Diseases of the circulatory system complicating childbirth; O99.892 Other specified diseases and conditions complicating childbirth; I11.9 Hypertensive heart disease without heart failure; Z79.899 Other long term (current) drug therapy; O99.344 Other mental disorders complicating childbirth; O99.62 Diseases of the digestive system complicating childbirth